=== PATIENT | female | born 1975 | race Caucasian/White ===

== ENCOUNTER 2022-09-03 15:49 | Emergency (ER) | payer BC, SELFPAY ==
--- NOTE | ~2022-09-03 | XR_ITS ---
EXAMINATION: XR chest 2V DATE: 09/03/2022 17:18 INDICATION: Edema of the legs TECHNIQUE: PA and lateral views of the chest are obtained. COMPARISON: None available FINDINGS: There is mild atelectasis of the lung bases. No pleural effusion or pneumothorax. The cardi omediastinal silhouette is normal. There are changes of posterior fusion in the thoracic spine. There is an old T8 compression fracture. Healed right-sided rib fractures are noted. IMPRESSION: 1. Mild atelectasis of the lung bases. Reviewed, dictated and finalized at location F.
[2022-09-03 15:57] VITALS: BP 108/72; PULSE 65; RESP 20; TEMP 36.6; O2SAT 100
--- NOTE | 2022-09-03 16:57 | ED.EXTPRO ---
HPI - Extremity Problem General Chief complaint: Extremity Problem,Nontraumatic Stated complaint: Swollen Legs/Feet Time Seen by Provider: 09/03/22 16:57 Source: patient, RN notes reviewed and old records reviewed Mode of arrival: ambulatory Limitations: no limitations History of Present Illness HPI Narrative: 46 year old female who presents to [facility] care with complaints of 3 day duration of bilateral swollen feet and lower leg edema.Patient reports that she has not had prior occurrence of this type of swelling, denies any injury to legs, no cough or any shortness of breath. 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 Patient has no redness or any open lesions to legs or feet pitting edema note to feet. MD Complaint: other (lower leg and foot edema bilateral) Onset (ago): day(s) (3) Related Data Home Medications Medication Instructions Recorded Confirmed No Home Medications 09/03/22 09/03/22 Allergies Allergy/AdvReac Type Severity Reaction Status Date / Time No Known Allergies Allergy Verified 09/03/22 16:38 Review of Systems Review of Systems: CONSTITUTIONAL: Denies fever, chills, or sweats. EYES: Denies visual changes, redness, or discharge. ENT: Denies rhinorrhea, congestion, sore throat, or otalgia. CARDIOVASCULAR: Denies chest pain, palpitations, bilateral lower extremity swelling and pedal edema RESPIRATORY: Denies cough or dyspnea. GASTROINTESTINAL: Denies abdominal pain, nausea, vomiting, or diarrhea. GENITOURINARY: Denies dysuria or hematuria. SKIN: Denies rash or itching. MUSCULOSKELETAL: Some chronic back pain, joint pain, or myalgia. NEUROLOGIC: Denies headache, numbness, or weakness. PSYCHIATRIC: Denies anxiety or depression. All systems reviewed & are unremarkable except as noted in HPI and below [facility] Surgical History Surgical History (Updated 09/03/22 @ 17:57 by Lily Elise NP) H/O Spinal surgery Social History Social History (Updated 09/07/22 @ 06:59 by Lily Elise NP) Smoking packs per day: 0.5 Smoking cigarettes per day: 10.0 Years smoked: 15 Smoking pack-years: 7.50 Smoking status: Current every day smoker Alcohol intake: unknown Substance use type: does not use Living arrangements: with family Gender identity (if verbalized by the patient): Female Comments At time of signature, agree with nursing past medical, surgical, social and family history. There is no relevant family history pertinent to the presenting complaint Exam Narrative: GENERAL: Well-appearing, well-nourished, and in no acute distress. HEAD: Normocephalic, atraumatic. EYES: PERRLA and EOMI. ENT: Nares clear, no rhinorrhea or epistaxis. Mucous membranes moist.TM's normal throat pink with no swelling NECK: Supple. no lymphadenopathy CHEST: Clear to auscultation. No respiratory distress. SAO2 100% on room air HEART: Regular rate and rhythm. No murmur heard. Normal peripheral pulses. ABDOMEN: Soft, nontender, nondistended, normal active bowel sounds. EXTREMITIES: Normal range of motion. pretibial edema to bilateral lower extremities,1+ pedal edema to feet.No calf tenderness SKIN: Warm, dry, no rash. NEURO: No focal deficits. Alert and oriented x3. Course Course Emergency Course: Patient is aware of diagnosis, understands and agrees to treatment plan.? Anticipatory guidance given.? Patient agrees to follow-up as directed and is aware of reasons to seek care at the emergency department. Portions of this record may have been created with voice recognition software Level of Care: Express Care Visit Vital Signs Vital signs: Vital Signs Temperature 36.6 C 09/03/22 15:57 Pulse Rate 65 09/03/22 15:57 Respiratory Rate 20 09/03/22 15:57 Blood Pressure 108/72 09/03/22 15:57 Pulse Oximetry 100 09/03/22 15:57 Oxygen Delivery Room Air 09/03/22 15:57 Temperature 36.6 C 09/03/22 15:57 Pulse Rate 65 09/03/22 15:57 Respiratory Rate
== END 2022-09-03 18:00 | disposition home or self-care (01) ==
PROVIDERS: Emergency Provider Registered Nurse; PCP Family Medicine
DX: R60.9 Edema, unspecified (principal); R60.0 Localized edema; F17.210 Nicotine dependence, cigarettes, uncomplicated
CPT/HCPCS: 71046; 99213; G0463

== ENCOUNTER 2024-03-11 18:15 | Emergency (ER) | payer SELFPAY ==
[2024-03-11 18:26] VITALS: BP 141/83; PULSE 95; RESP 16; TEMP 36.5; O2SAT 98
--- NOTE | 2024-03-11 18:56 | ED.GENADULT ---
HPI - General Adult General Chief complaint: Nausea/Vomiting/Diarrhea Stated complaint: Vomiting/Headache Source: patient Mode of arrival: ambulatory Limitations: no limitations History of Present Illness HPI narrative: 40-year-old female presented for complaint nausea, vomiting and diarrhea earlier in the week. She states she felt like she had the flu and missed work. 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 She states she feels much better, symptoms are resolved, and she has been able to tolerate p.o. Related Data Home Medications Medication Instructions Recorded Confirmed furosemide 20 mg tablet mg 03/11/24 Allergies Allergy/AdvReac Type Severity Reaction Status Date / Time ciprofloxacin Allergy Unknown Verified 03/11/24 18:51 Review of Systems Review of Systems: CONSTITUTIONAL: Denies body aches, fever, chills, or sweats. ENT: Denies rhinorrhea, congestion, sore throat, or otalgia. CARDIOVASCULAR: Denies chest pain, palpitations, or edema. RESPIRATORY: Denies cough or dyspnea. GASTROINTESTINAL: Denies abdominal pain, nausea, vomiting, or diarrhea. GENITOURINARY: Denies dysuria or hematuria. SKIN: Denies rash, itching, or wounds. MUSCULOSKELETAL: Denies back pain, joint pain, or myalgia. NEUROLOGIC: Denies headache, numbness, tingling, or weakness. All systems reviewed & are unremarkable except as noted in HPI and below [facility] Surgical History Surgical History H/O Spinal surgery Social History Social History Smoking packs per day: 0.5 Smoking cigarettes per day: 10.0 Years smoked: 15 Smoking pack-years: 7.50 Smoking status: Current every day smoker Alcohol intake: unknown Substance use type: does not use Living arrangements: with family Gender identity (if verbalized by the patient): Female Comments At time of signature, I have reviewed and agree with nursing past medical, surgical, social and family history unless otherwise noted. Please see nursing chart for further information. There is no relevant family history pertinent to the presenting complaint Exam Narrative: GENERAL: Well-appearing, well-nourished, and in no acute distress. EYES: EOMI. No redness or drainage. Conjunctivae normal. ENT: Mucous membranes pink and moist. NECK: Normal AROM. CHEST: No respiratory distress. Clear to auscultation. HEART: Regular rate and rhythm. No murmur appreciated. Normal peripheral pulses. ABDOMEN: Soft, nontender, nondistended, normal active bowel sounds. SKIN: Warm, dry, no rash. Capillary refill normal. Normal skin turgor. NEURO: No focal deficits. Alert and oriented x3. Gait steady. PSYCH: Normal affect. Course Course Emergency Course: Patient is aware of diagnosis, understands and agrees to treatment plan. Anticipatory guidance given. Patient agrees to follow-up as directed and is aware of reasons to seek care at the emergency department. Portions of this record may have been created with voice recognition software Level of Care: Express Care Visit Vital Signs Vital signs: Vital Signs Temperature 97.7 F 03/11/24 18:26 Pulse Rate 95 03/11/24 18:26 Respiratory Rate 16 03/11/24 18:26 Blood Pressure 141/83 H 03/11/24 18:26 Pulse Oximetry 98 03/11/24 18:26 Oxygen Delivery Room Air 03/11/24 18:26 Temperature 97.7 F 03/11/24 18:26 Pulse Rate 95 03/11/24 18:26 Respiratory Rate 16 03/11/24 18:26 Blood Pressure 141/83 H 03/11/24 18:26 Pulse Oximetry 98 03/11/24 18:26 Oxygen Delivery Room Air 03/11/24 18:26 Medical Decision Making MDM Narrative Medical decision making narrative: Advised supportive measures and signs/symptoms to go to the ER. Pt is appropriate for outpt treatment and f/u. Differential Diagnosis Differential Diagnosis: gastroenteritis, viral infection
== END 2024-03-11 19:01 | disposition home or self-care (01) ==
PROVIDERS: Emergency Provider Nurse Practitioner Family
DX: R11.10 Vomiting, unspecified (principal); F17.210 Nicotine dependence, cigarettes, uncomplicated
CPT/HCPCS: 99211; G0463

== ENCOUNTER 2024-05-16 17:09 | Emergency (ER) | payer SELFPAY ==
[2024-05-16 17:16] VITALS: BP 117/76; PULSE 97; RESP 16; TEMP 36.4; O2SAT 97
[2024-05-16 17:18] VITALS: BP 117/76; PULSE 97; RESP 16; TEMP 36.4; O2SAT 97
--- NOTE | 2024-05-16 17:48 | ED_ITS ---
HPI - Nausea/Vomiting/Diarrhea General Chief complaint: Nausea/Vomiting/Diarrhea Stated complaint: needs note for work Time Seen by Provider: 05/16/24 17:48 Source: patient Mode of arrival: ambulatory Limitations: no limitations History of Present Illness HPI Narrative: 48-year-old female presents with complaint nausea, vomiting, fatigue, headache this morning. Was unable to go to work due to symptoms. Last vomited around 9:00 a.m.. Since then has been able to eat chicken noodle soup and drink water. Is feeling much better. Needs note to return to work. All systems reviewed and negative except as noted above. Related Data Home Medications Medication Instructions Recorded Confirmed furosemide 20 mg tablet mg 03/11/24 fluoxetine 20 mg capsule 20 mg PO DAILY 05/16/24 05/16/24 potassium chloride 10 mEq 10 meq PO DAILY 05/16/24 05/16/24 tablet,extended release Allergies Allergy/AdvReac Type Severity Reaction Status Date / Time ciprofloxacin Allergy Unknown Verified 03/11/24 18:51 Review of Systems Review of Systems: CONSTITUTIONAL: Denies fever, chills, or sweats. EYES: Denies visual changes, redness, or discharge. ENT: Denies rhinorrhea, congestion, sore throat, or otalgia. CARDIOVASCULAR: Denies chest pain, palpitations, or edema. RESPIRATORY: Denies cough or dyspnea. GASTROINTESTINAL: Denies abdominal pain . Reports nausea, vomiting. Denies diarrhea. GENITOURINARY: Denies dysuria or hematuria. SKIN: Denies rash or itching. MUSCULOSKELETAL: Denies back pain, joint pain, or myalgia. NEUROLOGIC: Denies headache, numbness, or weakness. PSYCHIATRIC: Denies anxiety or depression. All other systems reviewed are negative, except as documented in HPI. [facility] Surgical History Surgical History H/O Spinal surgery Social History Social History Smoking packs per day: 0.5 Smoking cigarettes per day: 10.0 Years smoked: 15 Smoking pack-years: 7.50 Smoking status: Current every day smoker Alcohol intake: unknown Substance use type: does not use Living arrangements: with family Gender identity (if verbalized by the patient): Female Comments At time of signature, agree with nursing past medical, surgical, social and family history. There is no relevant family history pertinent to the presenting complaint. Exam Narrative: GENERAL: This is a well-nourished, well-developed patient, in no apparent distress. HEAD: normocephalic, atraumatic. EYES: PERRL. Sclera clear/white. Vision is grossly intact. EARS: External ears normal NOSE: External nose normal NECK: Neck supple, non-tender without lymphadenopathy, masses or thyromegaly. CARDIOVASCULAR: Regular rate and rhythm without murmurs, gallops, or rubs. RESPIRATORY: Clear to auscultation. Breath sounds equal bilaterally. No wheezes, rales, or rhonchi. GASTROINTESTINAL: Abdomen soft, non-tender, nondistended. Bowel sounds are active. No hepato-splenomegaly, or palpable masses. No guarding. SKIN: warm, Dry, intact with no suspicious lesions or rash, good texture and turgor. NEURO: awake, alert, and oriented to person, place and time. There were no obvious focal neurologic abnormalities. EXTREMITIES: No joint tenderness, effusion, or edema noted. Course Course Level of Care: Express Care Visit Vital Signs Vital signs: Vital Signs Temperature 36.4 C 05/16/24 17:16 Pulse Rate 97 05/16/24 17:16 Respiratory Rate 16 05/16/24 17:16 Blood Pressure 117/76 05/16/24 17:16 Pulse Oximetry 97 05/16/24 17:16 Oxygen Delivery Room Air 05/16/24 17:16 Temperature 36.4 C 05/16/24 17:18 Pulse Rate 97 05/16/24 17:18 Respiratory Rate 16 05/16/24 17:18 Blood Pressure 117/76 05/16/24 17:18 Pulse Oximetry 97 05/16/24 17:18 Oxygen Delivery Room Air 05/16/24 17:18 reviewed MDM - Nausea/Vomiting/Diarrhea MDM Narrative Medical decision making narrative: patient is well-appearing. Normal bowel sounds, no tenderness on exam. Able to keep down food and fluids. Patient is aware of diagnosis, understands and agrees to treatment plan. Anticipatory guidance given. Patient agrees to follow-up as directed and is aware of reasons to seek care at the emergency department. Portions of this record may have been created with voice recognition software Differential Diagnosis Differential diagnosis: Likely food poisoning and gastroenteritis Discharge Plan Discharge Clinical Impression: Nausea & vomiting Patient Disposition: Home, Self-Care Condition: Stable Instructions: Acute Nausea and Vomiting (ED) Additional Instructions: Take medication as prescribed to treat nausea and vomiting. This medication may cause abdominal bloating and constipation. Take ibuprofen or Tylenol every 6-8 hours as needed for pain and fever. Drink at least 64 oz of water a day. Follow-up with your primary care physician as needed. Prescriptions: New ondansetron 4 mg tablet,disintegrating 4 mg PO Q8H PRN (Reason: nausea and vomiting) Qty: 12 0RF No Action furosemide 20 mg tablet potassium chloride 10 mEq tablet extended release 10 meq PO DAILY fluoxetine 20 mg capsule 20 mg PO DAILY Follow-up/Referrals: Aparna Skinner RN [Primary Care Provider] - Stand Alone Forms: Work/School Release IP Time of Disposition: 17:54
== END 2024-05-16 17:57 | disposition home or self-care (01) ==
PROVIDERS: Emergency Provider Nurse Practitioner Family
DX: R11.2 Nausea with vomiting, unspecified (principal); F17.210 Nicotine dependence, cigarettes, uncomplicated
CPT/HCPCS: 99213; G0463

== ENCOUNTER 2025-02-12 17:35 | Emergency (ER) | payer MEDICAID, SELFPAY ==
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
--- OUTSIDE RECORDS SUMMARY | 2025-02-12 17:37 | XMS_ITS | Clinical Summary ---
Author Organization [facility] Address [address] [place] [address] Care Team Providers Care Steam Hoist Operator Name Role Phone Kaleigh Valentino APRN-AGRICULTURAL EDUCATION PROFESSOR Primary Care Provider + Source Comments [facility],non-owned Affiliates and Associated Physician Practices is amultiple site organization consisting of ambulatory clinics and hospital sitesin [place], [place], [place] and [place]. This disclosure is being madepursuant to the Care Everywhere program and may not contain all information available regarding this patient. Last updated 18.[facility] Allergies Active Allergy Reactions Criticality Noted Date Comments Ciprofloxacin Diarrhea,Nausea and/ or Vomiting 07/18/2015 Other reaction(s): Other (see Comments) Severe abdominal pain. Had to be hospitalized Medications * Be aware that medications may not be up to date on this document. Alwaysverify current medications with the patient. albuterol HFA (PROVENTIL;VENT BRITTA;PROAIR) 108 (90 BASE) MCG/ACT inhaler Acti ve gabapentin (NEURONTIN) 300 MG capsule TK 2 CS PO TID 2 8 Active hydroCHLOROthia zide (MICROZIDE) 12.5 MG capsule TK ONE C PO D 3 8 Active ibuprofen (MOTRIN) 200 MG tablet Take 400-600 mg by mouth every 6 hours as needed Active QUEtiapine (SEROQUEL) 50 MG tablet TK 1 T PO BID 2 8 Active beclomethasone HFA (QVAR REDIHALER) 80 MCG/ACT inhaler Inhale 2 puffs by mouth as needed 8 Active METHADONE HCL PO Take 80 mg by mouth Active HYDROcodone-scott taminophen (NORCO) 5-325 MG tabletIndicatio ns:Pain Take 1 tablet by mouth every 4 hours as needed for Pain Reasons: Pain 10 tablet 9 Active Additional Information Patient not taking.Reported on 06/24/2018 Active Problems Problem Noted Date Diagnosed Date Pre-op testing 06/15/2018 Chronic obstructive pulmonar y disease with acute exacerbation 11/09/2017 Resolved Problems Problem Noted Date Diagnosed Date Resolved Date Bacteremia due to Gram-negative bacteria 11/20/2017 05/06/2018 Overview (05/06/2018): Overview: Last Assessment & Plan: Secondary to pyelo. Continue Rocephin. Neuropathy 11/20/2017 05/06/2018 Overview (05/06/2018): Overview: Last Assessment & Plan: Continue home medications. Anxiety 11/09/2017 05/06/2018 Chronic back pain 11/09/2017 05/06/2018 Current smoker 04/06/2015 05/06/2018 Overview (05/06/2018): Overview: Overview: Current smoker Last Assessment & Plan: Patient refusing nicotine patch at this time. Patient advised ask for nicotine patch if she would like 1. Immunizations Immunization Administration Dates Next Due INFLUENZA VACCINE, QUADR. (F LUZONE; FLULAVAL; FLUARIX; AFLURIA QUADRIVALENT; 6MO+), 0.5 ML (IIV4) 04/06/2018 Social History Tobacco Use Types Packs/Day Years Used Date Smoking Tobacco: Heavy Smoker Cigarettes 1 15 Smokeless Tobacco: Never Tobacco Cessation:Ready to Q uit: No; Counseling Given: Yes Alcohol Use Standard Drinks/Week Comments Yes 0 (1 standard drink = 0.6 oz pure alcohol) drinks 1 time per week, half a pint, denies recent use Comments No Sex and Gender Information Value Date Recorded Sex Assigned at Not on file Legal Sex Female 5:44 PM ARTIFICIAL PEARL MAKER Gender Identity Not on file Sexual Orientation Not on file Last Filed Vital Signs Vital Sign Reading Time Taken Comments Blood Pressure 116/69 06/24/2018 10:02 AM ARTIFICIAL PEARL MAKER Pulse 72 06/24/2018 10:02 AM ARTIFICIAL PEARL MAKER Temperature 37.1 C (98.7 F) 06/24/2018 10:02 AM ARTIFICIAL PEARL MAKER Respiratory Rate 16 06/24/2018 10:02 AM ARTIFICIAL PEARL MAKER Oxygen Saturation 97% 06/15/2018 11:31 AM ARTIFICIAL PEARL MAKER Inhaled Oxygen Concentration - - Weight 60.3 kg (133 lb) 06/24/2018 10:02 AM ARTIFICIAL PEARL MAKER Height 157.5 cm (5' 2) 06/24/2018 10:02 AM ARTIFICIAL PEARL MAKER Body Mass Index 24.33 06/24/2018 10:02 AM ARTIFICIAL PEARL MAKER Plan of Treatment Health Maintenance Due Date Last Done Comments COLOGUARD (AGES 45-75) - COL ON CA SCREENING 1975 COLON MONITORING 1975 COLONOSCOPY - COLON CA SCREENING 1975 CT COLONOGRAPHY - COLON CA SCREENING 1975 Colorectal Cancer Screening 1975 FIT - COLON CA SCREENING 1975 FLEX SIG - COLON CA SCREENING 1975 LIPID TESTING 1975 MAMMOGRAM 1975 HIV SCREENING 10/29/1990 HEPATITIS C SCREENING 10/25/1993 DTAP/TDAP/TD VACCINES (1 - Tdap) 10/29/1994 HEPATITIS B VACCINE (1 of 3 - 19+ 3-dose series) 10/29/1994 PAP SMEAR 10/29/1996 DEPRESSION SCREENING 06/08/2024 COVID-19 VACCINE (1 - 2023-2 5 season) 2025 INFLUENZA VACCINE (#1) 2025 04/06/2018 ZOSTER VACCINE (1 of 2) 10/29/2025 HIB VACCINE Aged Out No longer eligi ble based on patient's age to complete this topic HPV VACCINE Aged Out No longer eligi ble based on patient's age to complete this topic MENINGOCOCCAL (Group B) VACC INE SHARED DECISION-MAKING Aged Out No longer eligibl e based on patient's age to complete this topic MENINGOCOCCAL GROUPS A/C/Y/W VACCINE Aged Out No longer eligible b ased on patient's age to complete this topic Insurance [facility] Care Teams Steam Hoist Operator Relationship Specialty Start Date End Date Kaleigh Valentino, MERYL-AGRICULTURAL EDUCATION PROFESSOR PCP - General 04/19/18
--- OUTSIDE RECORDS SUMMARY | 2025-02-12 17:37 | XMS_ITS | Encounter Summary ---
Author Organization [facility] Address [address] [place] [address] Phone Care Team Providers Care Materials Handler Name Role Phone Hunter Parra MD Unavailable [phone] Aparna Skinner PILLING MACHINE OPERATOR, OWNER PROFESSIONAL ENGINEER Primary Care Provider + Victorina Brenner PILLING MACHINE OPERATOR, OWNER PROFESSIONAL ENGINEER Unavailable [phone] Moe Lovelace MD Unavailable Reason for Visit * Reason Comments Medication Refill Encounter Details Date Type Department Care Team (Late st Contact Info) Description 10/01/2024 Refill [facility] - Family Medicine [facility] [address] [place] [phone] Aparna Skinner, PILLING MACHINE OPERATOR, OWNER PROFESSIONAL ENGINEER [address] [place] [address] Medication Refill Social History Tobacco Use Types Packs/Day Years Used Date Smoking Tobacco: Former Cigarettes 1 33 1 990 - 2022 Smokeless Tobacco: Never Alcohol Use Standard Drinks/Week Comments Not Currently 0 (1 standard drink = 0.6 oz pure alcohol) quit 2020, used to drink 30 pack a day [facility] Utilities Answer Date Recorded In the past 12 months has th [employer], gas, oil, or water company threatened to shut off services in your home? Patient declined 11/15/2023 Social Connection and Isolation Panel Answer Date Recorded In a typical week, how many times do you talk on the phone with family, friends, or neighbors? Patient declined 11/15/2023 How often do you get togethe r with friends or relatives? Patient declined 11/15/2023 How often do you attend sabianism or yazdanism serv ices? Patient declined 11/15/2023 Do you belong to any clubs o r organizations such as sabianism groups, unions, fraternal or athletic groups, or school groups? Patient declined 11/15/2023 How often do you attend meet ings of the clubs or organizations you belong to? Patient declined 11/15/2023 Are you , , di vorced, , never , or living with a partner? Patient declined 11/15/2023 AUDIT-C Answer Date Recorded Q1: How often do you have a drink containing alc ohol? Patient declined 11/15/2023 Q2: How many drinks containi ng alcohol do you have on a typical day when you are drinking? Patient declined 11/15/2023 Q3: How often do you have si x or more drinks on one occasion? Patient declined 11/15/2023 Overall Financial Resource Strain (CARDIA) Answe r Date Recorded How hard is it for you to pa y for the very basics like food, housing, medical care, and heating? Patient declined 11/15/2023 PHQ-2 Answer Date Recorded Total Score - Questions 1-9 11 07/2022 [facility] - Occupational Stress Questionnaire Answer Date Recorded Do you feel stress - tense, restless, nervous, or anxious, or unable to sleep at night because your mind is troubled all the time - these days? Patient declined 11/15/2023 Exercise Vital Sign Answer Date Recorde d On average, how many days pe r week do you engage in moderate to strenuous exercise (like a brisk walk)? Patient declined On average, how many minutes do you engage in exercise at this level? Patient declined 11/15/2023 Hunger Vital Sign Answer Date Recorded Within the past 12 months, y ou worried that your food would run out before you got the money to buy more. Patient declined Within the past 12 months, t he food you bought just didn't last and you didn't have money to get more. Patient declined 02/2024 PRAPARE - Transportation Answer Date Re corded In the past 12 months, has l ack of transportation kept you from medical appointments or from getting medications? Patient declined 11/15/2023 In the past 12 months, has l ack of transportation kept you from meetings, work, or from getting things needed for daily living? Patient declined 11/15/2023 Housing Stability Vital Sign Answer Minesh e Recorded In the last 12 months, was t here a time when you were not able to pay the mortgage or rent on time? Patient declined 11/13/19 In the last 12 months, how many places have you lived? 1 11/13/2023 In the last 12 months, was t here a time when you did not have a steady place to sleep or slept in a detention (including now)? Patient declined 11/13/2023 Housing Stability Vital Sign Answer Minesh e Recorded In the last 12 months, was t here a time when you were not able to pay the mortgage or rent on time? Patient declined 11/15/19 In the past 12 months, how m any times have you moved where you were living? 1 11/15/2023 At any time in the past 12 m ont, were you homeless or living in a detention (including now)? Patient declined 11/15/2023 Education Answer Date Recorded What is the highest level of school you have completed or the highest degree you have received? Some college, no degree 11/07/2022 Sexually Active Control Partners Comments Yes Male Comments No Sex and Gender Information Value Date Recorded Sex Assigned at Not on file Legal Sex Female 11:56 PM CDT Gender Identity Not on file Sexual Orientation Not on file documented as of this encounter Miscellaneous Notes * Telephone Encounter - Aziza Kumar RN - 10/03/2024 10:44 AM CDT 2 No Shows and 1 patient cancellation since last appt. documented in this encounter Plan of Treatment Not on file documented as of this encounter Visit Diagnoses Not on filedocumented in this encounter Additional Health Concerns Assessment Noted Time PHQ-9 Depression Total Score: 11 023 9:00 AM CDT documented as of this encounter Care Teams Materials Handler Relationship Specialty Start Date End Date Aparna Skinner, PILLING MACHINE OPERATOR, OWNER PROFESSIONAL ENGINEER [address] [place] [address] PCP - General Advanced Practice Nurse 11/07/22 Hunter Parra MD Consulting Physician Obstetrics & Gynecology 11/09/17 Victorina Brenner, PILLING MACHINE OPERATOR, OWNER PROFESSIONAL ENGINEER [address] [place] [address] Nurse Practitioner Cardiology 10/15/23 12/19/24 Moe Lovelace MD [address] [facility] [address] [place] [address] Consulting Physician Colon and Rectal Surgery 11/11/23 documented as of this encounter
--- OUTSIDE RECORDS SUMMARY | 2025-02-12 17:37 | XMS_ITS | Encounter Summary ---
Author Organization [facility] Address [address] [place] [address] Phone Care Team Providers Care Scalper Operator Name Role Phone Hunter Parra MD Unavailable [phone] Aparna Skinner BUSINESS INFORMATION MANAGER, LIFE INSURANCE SPECIALIST Primary Care Provider + Victorina Brenner BUSINESS INFORMATION MANAGER, LIFE INSURANCE SPECIALIST Unavailable [phone] Moe Lovelace MD Unavailable Reason for Visit * Reason Comments Medication Refill Encounter Details Date Type Department Care Team (Late st Contact Info) Description 11/06/2023 [facility]ill [facility] [address] [place] [phone] Aparna Skinner, BUSINESS INFORMATION MANAGER, LIFE INSURANCE SPECIALIST [address] [place] [address] Medication Refill Social History Tobacco Use Types Packs/Day Years Used Date Smoking Tobacco: Former Cigarettes 1 33 1 990 - 2022 Smokeless Tobacco: Never Alcohol Use Standard Drinks/Week Comments Yes 0 (1 standard drink = 0.6 oz pur e alcohol) occasionally [facility] Utilities Answer Date Recorded In the past 12 months has [employer], gas, oil, or water company threatened to shut off services in your home? No 09/29/2023 Social Connection and Isolation Panel Answer Date Recorded In a typical week, how many times do you talk on the phone with family, friends, or neighbors? More than three times a week 09/29/2023 How often do you get togethe r with friends or relatives? Never 09/29/2023 How often do you attend chur ch or orthodox services? Never 09/29/2023 Do you belong to any clubs o r organizations such as presybeterian groups, unions, fraternal or athletic groups, or school groups? No 09/29/2023 How often do you attend meet ings of the clubs or organizations you belong to? Never 09/29/2023 Are you , , di vorced, , never , or living with a partner? 09/29/2023 AUDIT-C Answer Date Recorded Q1: How often do you have a drink containing alcohol? Never 09/29/2023 Q2: How many drinks containi ng alcohol do you have on a typical day when you are drinking? Patient does not drink Q3: How often do you have si x or more drinks on one occasion? Never 09/29/2023 Overall Financial Resource Strain (CARDIA) Answe r Date Recorded How hard is it for you to pa y for the very basics like food, housing, medical care, and heating? Not very hard 09/29/2023 PHQ-2 Answer Date Recorded Total Score - Questions 1-9 11 06/0 07/2022 [facility] - Occupational Stress Questionnaire Answer Date Recorded Do you feel stress - tense, restless, nervous, or anxious, or unable to sleep at night because your mind is troubled all the time - these days? Very much 09/29/2023 Exercise Vital Sign Answer Date Recorde d On average, how many days pe r week do you engage in moderate to strenuous exercise (like a brisk walk)? 0 days 09/29/2023 On average, how many minutes do you engage in exercise at this level? 0 min 09/29/2023 Hunger Vital Sign Answer Date Recorded Within the past 12 months, y ou worried that your food would run out before you got the money to buy more. Sometimes true Within the past 12 months, t he food you bought just didn't last and you didn't have money to get more. Never true PRAPARE - Transportation Answer Date Re corded In the past 12 months, has l ack of transportation kept you from medical appointments or from getting medications? No 09/07 In the past 12 months, has l ack of transportation kept you from meetings, work, or from getting things needed for daily living? No 09/29/2023 Housing Stability Vital Sign Answer Minesh e Recorded In the last 12 months, was t here a time when you were not able to pay the mortgage or rent on time? No 09/29/2023 In the last 12 months, how many places have you lived? 1 09/29/2023 In the last 12 months, was t here a time when you did not have a steady place to sleep or slept in a [place] health care facility (including now)? No 09/29/2023 Education Answer Date Recorded What is the [...] encounter Miscellaneous Notes * Telephone Encounter - Kathrine Cardona RN - 11/06/2023 2:39 PM CDT Images from the original note were not included. Pantoprazole Sodium Dispensed Days Supply Quantity Provider Pharmacy PANTOPRAZOLE 20MG TABLETS 2023 15 30 Each Aparna Skinner APRN, LIFE INSURANCE SPECIALIST [facility] PANTOPRAZOLE 20MG TABLETS 10/02/2023 30 60 Each Aparna Skinner APRN, CNP [facility]... Medication(s) refilled and signed per [facility] Chronic Medication Refill Standing Order for Pediatricand Adult Patients. Requested Prescriptions Pending Prescriptions Disp Refills pantoprazole (PROTONIX) 20 MG Tablet Delayed Response [Pharmacy Med Name: PANTOPRAZOLE 20MG TABLETS] 90 Tablet 0 Sig: Take 2 Tablets by mouth daily. Proton Pump Inhibitors Protocol Passed - 11/06/2023 8:03 AM Passed - No positive test in the past 12 months or most recent test was negative Passed - Visit with relevant provider in past 12 months or upcoming 90 days Recent Visits Date Type Provider Dept 10/13/23 Office Visit Brent Baird MD [facility] It Technical Support Specialist [place] 09/30/23 Office Visit Aparna Skinner BUSINESS INFORMATION MANAGER, LIFE INSURANCE SPECIALIST [facility] 09/07/23 Office Visit Mau Ngo MD [facility] [place] 07/01/23 Office Visit Aparna Skinner, BUSINESS INFORMATION MANAGER, LIFE INSURANCE SPECIALIST [facility] [place] 05/27/23 Office Visit Aparna Skinner BUSINESS INFORMATION MANAGER, LIFE INSURANCE SPECIALIST [facility] [place] 11/21/22 Office Visit Aparna Skinner BUSINESS INFORMATION MANAGER, LIFE INSURANCE SPECIALIST [facility] Technical Support Specialist [place] 11/14/22 Office Visit Aparna Skinner BUSINESS INFORMATION MANAGER, LIFE INSURANCE SPECIALIST [facility] [place] 11/07/22 Office Visit Aparna Skinner APRN, LIFE INSURANCE SPECIALIST [facility] Showing recent visits within past 365 days and meeting all other requirements Future Appointments Date Type Provider Dept 11/13/23 Appointment Aparna Skinner APRN, LIFE INSURANCE SPECIALIST [facility] 02/01/24 Appointment Aparna Skinner APRN, LIFE INSURANCE SPECIALIST [facility] [place] Showing future appointments within next 90 days and meeting all other requirements Passed - No active on record documented in this encounter Plan of Treatment Not on file documented as of this encounter Visit Diagnoses Not on filedocumented in this encounter Additional Health Concerns Infection Onset Date Last Indicated Resolved Time COVID - 19 05/06/2024 05/06/2024 05/06/2024 11:1 8 AM VASCULAR TECHNICIAN Assessment Noted Time PHQ-9 Depression Total Score: 11 023 9:00 AM CDT documented as of this encounter Care Teams Scalper Operator Relationship Specialty Start Date End Date Aparna Skinner APRN, LIFE INSURANCE SPECIALIST [address] [place] [address] PCP - General Advanced Practice Nurse 11/07/22 Hunter Parra MD Consulting Physician Obstetrics & Gynecology 11/09/17 Victorina Brenner APRN, LIFE INSURANCE SPECIALIST [address] [facility] [place] [address] Nurse Practitioner Cardiology 10/15/23 12/19/24 Moe Lovelace MD [address] [facility] [address] [place] [address] Consulting Physician Colon and Rectal Surgery 11/11/23 documented as of this encounter
--- OUTSIDE RECORDS SUMMARY | 2025-02-12 17:37 | XMS_ITS | Encounter Summary ---
Author Organization [facility] Address [address] [place] [address] Phone Care Team Providers Care Loan Clerk Name Role Phone Hunter Parra MD Unavailable [phone] Aparna Skinner LICENSED OCCUPATIONAL THERAPIST, ELECTRONIC LAB TECHNICIAN Primary Care Provider + Victorina Brenner LICENSED OCCUPATIONAL THERAPIST, ELECTRONIC LAB TECHNICIAN Unavailable [phone] Moe Lovelace MD Unavailable Reason for Visit * Reason Comments Medication Refill Encounter Details Date Type Department Care Team (Late st Contact Info) Description 08/24/2023 Refill [facility] - Family Medicine [facility] [address] [place] [phone] Aparna Skinner, LICENSED OCCUPATIONAL THERAPIST, ELECTRONIC LAB TECHNICIAN [address] [place] [address] Medication Refill Social History Tobacco Use Types Packs/Day Years Used Date Smoking Tobacco: Former Cigarettes 1 33 1 990 - 2022 Smokeless Tobacco: Never Alcohol Use Standard Drinks/Week Comments Yes 0 (1 standard drink = 0.6 oz pur e alcohol) occasionally PHQ-2 Answer Date Recorded Total Score - Questions 1-9 11 /07/2022 Education Answer Date Recorded What is the [...] Telephone Encounter - Aziza Kumar RN - 08/24/2023 2:39 PM CDT Medication failed the protocol, provider to review and approve the medication order if appropriate. Requested Prescriptions Pending Prescriptions Disp Refills FLUoxetine (PROzac) 20 MG Capsule [Pharmacy Med Name: FLUOXETINE 20MG CAPSULES] 90 Capsule 1 Sig: TAKE 1 CAPSULE BY MOUTH DAILY SSRI (6 Month Refill Only) Protocol Failed - 08/24/2023 2:17 PM Failed - Patient has established therapy with SSRI for at least 6 months Passed - No test in the past 12 months or most recent test was negative Passed - No active on record Passed - Visit with relevant provider in past 6 months or upcoming 90 days Recent Visits Date Type Provider Dept 07/01/23 Office Visit Aparna Skinner APRN, ELECTRONIC LAB TECHNICIAN [facility] 05/27/23 Office Visit Aparna Skinner APRN, ELECTRONIC LAB TECHNICIAN [facility] Showing recent visits within past 182 days and meeting all other requirements Future Appointments Date Type Provider Dept 09/30/23 Appointment Aparna Skinner APRN, TERRANCE [facility] 11/13/23 Appointment Aparna Skinner APRN, ELECTRONIC LAB TECHNICIAN [facility] Showing future appointments within next 90 days and meeting all other requirements Passed - Has an encounter in the past 6 months with a depression, anxiety, adjustment disorder, OCD, or PTSD visit diagnosis documented in this encounter Plan of Treatment Not on file documented as of this encounter Visit Diagnoses Diagnosis Night sweats Generalized hyperhidrosis Anxiety Anxiety state, unspecified documented in this encounter Additional Health Concerns Infection Onset Date Last Indicated Resolved Time COVID - 19 05/06/2024 05/06/2024 05/06/2024 11:1 8 AM DETONATOR MAKER Assessment Noted Time PHQ-9 Depression Total Score: 11 023 9:00 AM CDT documented as of this encounter Care Teams Loan Clerk Relationship Specialty Start Date End Date Aparna Skinner APRN, ELECTRONIC LAB TECHNICIAN [address] [place] [address] PCP - General Advanced Practice Nurse 11/07/22 Hunter Parra MD Consulting Physician Obstetrics & Gynecology 11/09/17 Victorina Brenner APRN, ELECTRONIC LAB TECHNICIAN [address] [facility] [facility] [place] [address] Nurse Practitioner Cardiology 10/15/23 12/19/24 Moe Lovelace MD [address] [facility] [address] [place] [address] Consulting Physician Colon and Rectal Surgery 11/11/23 documented as of this encounter
--- OUTSIDE RECORDS SUMMARY | 2025-02-12 17:37 | XMS_ITS | Encounter Summary ---
Author Organization [facility] Address [address] [facility] [place] [address] Phone Care Team Providers Care Salesperson Furs Name Role Phone Hunter Parra MD Unavailable [phone] Aparna Skinner DOPER, CRYPTANALYST Primary Care Provider + Victorina Brenner DOPER, CRYPTANALYST Unavailable [phone] Moe Lovelace MD Unavailable Reason for Visit * Reason Comments Medication Refill Encounter Details Date Type Department Care Team (Late st Contact Info) Description 09/21/2023 [facility]ill [facility] - [facility] [address] [place] [id number] Aparna Skinner, DOPER, CRYPTANALYST [address] [place] [address] Medication Refill Social History Tobacco Use Types Packs/Day Years Used Date Smoking Tobacco: Former Cigarettes 1 33 1 990 - 2022 Smokeless Tobacco: Never Alcohol Use Standard Drinks/Week Comments Yes 0 (1 standard drink = 0.6 oz pur e alcohol) occasionally [facility] Utilities Answer Date Recorded In the past 12 months has [employer] electric, gas, oil, or water company threatened to shut off services in your home? No 09/07/2023 Social Connection and Isolation Panel Answer Date Recorded In a typical week, how many times do you talk on the phone with family, friends, or neighbors? Three times a week 09/07/19 How often do you get togethe r with friends or relatives? Never 09/07/2023 How often do you attend chur ch or synagogue services? 1 to 4 times per year 09/07/2023 Do you belong to any clubs o r organizations such as uatsdin groups, unions, fraternal or athletic groups, or school groups? Yes 09/07/2023 How often do you attend meet ings of the clubs or organizations you belong to? 1 to 4 times per year 09/07/2023 Are you , , di vorced, , never , or living with a partner? 09/07/2023 AUDIT-C Answer Date Recorded Q1: How often do you have a drink containing alcohol? Never 09/07/2023 Q2: How many drinks containi ng alcohol do you have on a typical day when you are drinking? Patient does not drink Q3: How often do you have si x or more drinks on one occasion? Never 09/07/2023 Overall Financial Resource Strain (CARDIA) Answe r Date Recorded How hard is it for you to pa y for the very basics like food, housing, medical care, and heating? Somewhat hard 09/07/2023 PHQ-2 Answer Date Recorded Total Score - Questions 1-9 11 06/07/2022 [facility] - Occupational Stress Questionnaire Answer Date Recorded Do you feel stress - tense, restless, nervous, or anxious, or unable to sleep at night because your mind is troubled all the time - these days? Very much 09/07/2023 Exercise Vital Sign Answer Date Recorde d On average, how many days pe r week do you engage in moderate to strenuous exercise (like a brisk walk)? 0 days 09/07/2023 On average, how many minutes do you engage in exercise at this level? 0 min 09/07/2023 Hunger Vital Sign Answer Date Recorded Within the past 12 months, y ou worried that your food would run out before you got the money to buy more. Sometimes true Within the past 12 months, t he food you bought just didn't last and you didn't have money to get more. Sometimes true 06/2023 PRAPARE - Transportation Answer Date Re corded In the past 12 months, has l ack of transportation kept you from medical appointments or from getting medications? Yes 06/2023 In the past 12 months, has l ack of transportation kept you from meetings, work, or from getting things needed for daily living? Yes 09/07/2023 Housing Stability Vital Sign Answer Minesh e Recorded In the last 12 months, was t here a time when you were not able to pay the mortgage or rent on time? Yes 09/07/2023 In the last 12 months, how many places have you lived? 1 09/07/2023 In the last 12 months, was t here a time when you did not have a steady place to sleep or slept in a usp (including now)? No 09/07/2023 Education Answer Date Recorded What is the [...] Telephone Encounter - Aziza Kumar RN - 09/21/2023 4:51 PM CDT PRN medication requires review from provider Per nursing clinical judgement, provider to review and approve the medication(s) order(s) if appropriate. Requested Prescriptions Pending Prescriptions Disp Refills albuterol 108 (90 Base) MCG/ACT Aerosol Solution [Pharmacy Med Name: ALBUTEROL HFA INH (200 PUFFS) 8.5GM] 8.5 g 1 Sig: INHALE 2 PUFFS BY MOUTH EVERY 4 HOURS NEEDED FOR WHEEZING Short Acting Inhaled Beta-Agonists Protocol Passed - 09/21/2023 2:19 PM Passed - Visit with relevant provider in past 12 months or upcoming 90 days Recent Visits Date Type Provider Dept 09/07/23 Office Visit Mau Ngo MD [facility] 07/01/23 Office Visit Aparna Skinner APRN, TERRANCE [facility] 05/27/23 Office Visit Aparna Skinner APRN, TERRANCE [facility] 11/21/22 Office Visit Aparna Skinner APRN, TERRANCE [facility] 11/14/22 Office Visit Aparna Skinner APRN, TERRANCE [facility] 11/07/22 Office Visit Aparna Skinnre APRN, CRYPTANALYST [facility] Showing recent visits within past 365 days and meeting all other requirements Future Appointments Date Type Provider Dept 09/30/23 Appointment Aparna Skinner APRN, TERRANCE [facility] 10/13/23 Appointment Brent Baird MD [facility] 11/13/23 Appointment Aparna Skinner APRN, CRYPTANALYST [facility] Showing future appointments within next 90 days and meeting all other requirements documented in this encounter Plan of Treatment Not on file documented as of this encounter Visit Diagnoses Diagnosis Dyspnea on exertion Other dyspnea and respiratory abnormality documented in this encounter Additional Health Concerns Infection Onset Date Last Indicated Resolved Time COVID - 19 05/06/2024 05/06/2024 05/06/2024 11:1 8 AM MANAGED CARE SPECIALIST Assessment Noted Time PHQ-9 Depression Total Score: 11 023 9:00 AM CDT documented as of this encounter Care Teams Salesperson Furs Relationship Specialty Start Date End Date Aparna Skinner APRN, CNP [address] [place] [address] PCP - General Advanced Practice Nurse 11/07/22 Hunter Parra MD Consulting Physician Obstetrics & Gynecology 11/09/17 Victorina Brenner APRN, TERRANCE [address] [facility] [address] [place] [address] Nurse Practitioner Cardiology 10/15/23 12/19/24 Moe Lovelace MD [address] [place] [address] Consulting Physician Colon and Rectal Surgery 11/11/23 documented as of this encounter
--- OUTSIDE RECORDS SUMMARY | 2025-02-12 17:37 | XMS_ITS | Encounter Summary ---
Author Organization [facility] Address [address] [facility] [place] [address] Phone Care Team Providers Care Card Setter Name Role Phone Hunter Parra MD Unavailable [phone] Aparna Skinner ACUPUNCTURE PHYSICIAN, SLIP PRESSER Primary Care Provider + Victorina Brenner ACUPUNCTURE PHYSICIAN, SLIP PRESSER Unavailable [phone] Moe Lovelace MD Unavailable Reason for Visit * Reason Comments Medication Refill Encounter Details Date Type Department Care Team (Late st Contact Info) Description 07/14/2023 Refill [facility] [address] [place] [phone] Aparna Skinner, ACUPUNCTURE PHYSICIAN, SLIP PRESSER [address] [place] [address] Medication Refill Social History Tobacco Use Types Packs/Day Years Used Date Smoking Tobacco: Former Cigarettes 1 33 1 990 - 2022 Smokeless Tobacco: Never Alcohol Use Standard Drinks/Week Comments Yes 0 (1 standard drink = 0.6 oz pur e alcohol) occasionally PHQ-2 Answer Date Recorded Total Score - Questions 1-9 11 07/2022 Education Answer Date Recorded What is the [...] Telephone Encounter - Aziza Kumar RN - 07/14/2023 4:48 PM CST PRN medication requires review from provider Per nursing clinical judgement, provider to review and approve the medication(s) order(s) if appropriate. Requested Prescriptions Pending Prescriptions Disp Refills albuterol 108 (90 Base) MCG/ACT Aerosol Solution [Pharmacy Med Name: ALBUTEROL HFA INH (200 PUFFS) 8.5GM] 18 g 1 Sig: INHALE 2 PUFFS BY MOUTH EVERY 4 HOURS NEEDED FOR WHEEZING Short Acting Inhaled Beta-Agonists Protocol Passed - 07/14/2023 12:21 PM Passed - Visit with relevant provider in past 12 months or upcoming 90 days Recent Visits Date Type Provider Dept 07/01/23 Office Visit Aparna Skinner APRN, CNP [facility] 05/27/23 Office Visit Aparna Skinner APRN, CNP [facility] 11/21/22 Office Visit Aparna Skinner APRN, CNP [facility] 11/14/22 Office Visit Aparna Skinner APRN, CNP [facility] 11/07/22 Office Visit Aparna Skinner APRN, SLIP PRESSER [facility] Showing recent visits within past 365 days and meeting all other requirements Future Appointments Date Type Provider Dept 09/30/23 Appointment Aparna Skinner APRN, SLIP PRESSER [facility] Showing future appointments within next 90 days and meeting all other requirements 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 MACHINE OPERATOR documented in this encounter Plan of Treatment Not on file documented as of this encounter Visit Diagnoses Diagnosis Dyspnea on exertion Other dyspnea and respiratory abnormality documented in this encounter Additional Health Concerns Infection Onset Date Last Indicated Resolved Time COVID - 19 05/06/2024 05/06/2024 05/06/2024 11:1 8 AM BAILING MACHINE OPERATOR Assessment Noted Time PHQ-9 Depression Total Score: 11 023 9:00 AM CDT documented as of this encounter Care Teams Card Setter Relationship Specialty Start Date End Date Aparna Skinner APRN, SLIP PRESSER [address] [place] [address] PCP - General Advanced Practice Nurse 11/07/22 Hunter Parra MD Consulting Physician Obstetrics & Gynecology 11/09/17 Victorina Brenner APRN, SLIP PRESSER [address] [facility], [address] [place] [address] Nurse Practitioner Cardiology 10/15/23 12/19/24 Moe Lovelace MD [address] [place] [facility] [address] [place] [address] Consulting Physician Colon and Rectal Surgery 11/11/23 documented as of this encounter
--- OUTSIDE RECORDS SUMMARY | 2025-02-12 17:37 | XMS_ITS | Encounter Summary ---
Author Organization [facility] Address [address] [facility] [place] [address] Phone Care Team Providers Care Steam Gigger Name Role Phone Hunter Parra MD Unavailable [phone] Aparna Skinner LOG SNAKER, FISHER TROT LINE Primary Care Provider + Victorina Brenner APRN, FISHER TROT LINE Unavailable [phone] Moe Lovelace MD Unavailable Reason for Visit * Reason Comments Medication Refill Encounter Details Date Type Department Care Team (Late st Contact Info) Description 2023 Refill [facility] - [facility] [address] [place] [phone] Mau Ngo MD [address] [address] Medication Refill Social History Tobacco Use Types Packs/Day Years Used Date Smoking Tobacco: Former Cigarettes 1 33 1 - 2022 Smokeless Tobacco: Never Alcohol Use Standard Drinks/Week Comments Yes 0 (1 standard drink = 0.6 oz pur e alcohol) occasionally [facility] Utilities Answer Date Recorded In the past 12 months has [employer], gas, oil, or water company threatened [...] often do you attend chur ch or jew services? Never 09/29/2023 Do you belong to any clubs o r organizations such as latter-day groups, unions, fraternal or athletic groups, or [...] Score - Questions 1-9 11 06/0 07/2022 [facility] - Occupational Stress Questionnaire Answer Date [...] place to sleep or slept in a residential (including now)? No 09/29/2023 Education Answer Date [...] Telephone Encounter - Kathrine Cardona RN - 11/01/2023 12:42 PM CDT Medication(s) refilled and signed per [facility] Chronic Medication Refill Standing Order for Pediatricand Adult Patients. Requested Prescriptions Pending Prescriptions Disp Refills potassium chloride CR (KLORCON) 10 MEQ Tablet Controlled Release [Pharmacy Med Name: POTASSIUM CL 10MEQ ER TABLETS] 30 Tablet 1 Sig: Take 1 Tablet by mouth daily. Potassium Supplement Protocol Passed - 2023 6:55 PM Passed - Normal serum potassium in past 12 months POTASSIUM Date Value Ref Range Status 07/01/2023 4.4 3.5 - 5.1 mmol/L Final Passed - Visit with relevant provider in past 12 months or upcoming 90 days Recent Visits Date Type Provider Dept 10/13/23 Office Visit Brent Baird MD [facility] Roll Press Operator [place] 09/30/23 Office Visit Aparna Skinner APRN, TERRANCE [facility] 09/07/23 Office Visit Mau Ngo MD [facility] 07/01/23 Office Visit Aparna Skinner APRN, TERRANCE [facility] 05/27/23 Office Visit Aparna Skinner APRN, TERRANCE [facility] 11/21/22 Office Visit Aparna Skinner APRN, TERRANCE [facility] 11/14/22 Office Visit Aparna Skinner APRN, TERRANCE [facility] 11/07/22 Office Visit Aparna Skinner APRN, TERRANCE [facility] Showing recent visits within past 365 days and meeting all other requirements Future Appointments Date Type Provider Dept 11/13/23 Appointment Aparna Skinner APRN, TERRANCE [facility] Showing future appointments within next 90 days and meeting all other requirements furosemide (LASIX) 20 MG Tablet [Pharmacy Med Name: FUROSEMIDE 20MG TABLETS] 30 Tablet 1 Sig: Take 1 Tablet by mouth daily. Diuretics Protocol Passed - 2023 6:55 PM Passed - Serum potassium on record in past 12 months POTASSIUM Date Value Ref Range Status 07/01/2023 4.4 3.5 - 5.1 mmol/L Final Passed - Serum sodium on record in past 12 months SODIUM Date Value Ref Range Status 07/01/2023 135 (L) 136 - 145 mmol/L Final Passed - Blood pressure on record in past 12 months Clinician-entered: BP Readings from Last 3 Encounters: 10/22/23 104/78 10/13/23 138/86 09/30/23 136/82 Patient-entered: No data recorded Passed - Visit with relevant provider in past 12 months or upcoming 90 days Recent Visits Date Type Provider Dept 10/13/23 Office Visit Brent Baird MD [facility] Roll Press Operator [place] 09/30/23 Office Visit Aparna Skinner APRN, TERRANCE [facility] [place] 09/07/23 Office Visit Mau Ngo MD [facility] 07/01/23 Office Visit Aparna Skinner APRN, TERRANCE [facility] 05/27/23 Office Visit Aparna Skinner APRN, CNP [facility] 11/21/22 Office Visit Aparna Skinner APRN, CNP [facility] [place] 11/14/22 Office Visit Aparna Skinner APRN, CNP [facility] 11/07/22 Office Visit Aparna Skinner APRN, CNP [facility] Showing recent visits within past 365 days and meeting all other requirements Future Appointments Date Type Provider Dept 11/13/23 Appointment Aparna Skinner APRN, CNP [facility] Showing future appointments within next 90 days and meeting all other requirements Passed - GFR on record in past 12 months GFR, EST. NONAFRICAN Date Value Ref Range Status 07/01/2023 >60 >=60 Final documented in this encounter Plan of Treatment Not on file documented as of this encounter Visit Diagnoses Not on filedocumented in this encounter Additional Health Concerns Infection Onset Date Last Indicated Resolved Time COVID - 19 05/06/2024 05/06/2024 05/06/2024 11:1 8 AM [facility]IEF CONTROLLER [facility] Assessment Noted Time PHQ-9 Depression Total Score: 11 023 9:00 AM CDT documented as of this encounter Care Teams Steam Gigger Relationship Specialty Start Date End Date Aparna Skinner APRN, CNP [address] [place] [address] PCP - General Advanced Practice Nurse 11/07/22 Hunter Parra MD Consulting Physician Obstetrics & Gynecology 11/09/17 Victorina Brenner APRN, TERRANCE [address] [facility], [address] [address] Nurse Practitioner Cardiology 10/15/23 12/19/24 Moe Lovelace MD [address] [address] Consulting Physician Colon and Rectal Surgery 11/11/23 documented as of this encounter
--- OUTSIDE RECORDS SUMMARY | 2025-02-12 17:37 | XMS_ITS | Clinical Summary ---
Author Organization [facility] Address [address] [place] [address] Phone Care Team Providers Care Card Table Attendant Name Role Phone Hunter Parra MD Unavailable [phone] Aparna Skinner MANAGER OF GLOBAL, AUDIT INTERN Primary Care Provider + Moe Lovelace MD Unavailable Allergies Active Allergy Reactions Criticality Noted Date Comments Ciprofloxacin Diarrhea,Nausea,Vomi ti ng,Other (see Comments) 07/18/2015 Severe abdominal pain. Had to be hospitalized Medications triamcinolone (KENALOG) 0.1 % CreamIndicatio ns:Rash/skin eruption Application Site: Apply to affected area twice daily 45 g 3 Active Additional Information Patient not taking.Reported on 10/22/2023 albuterol 108 (90 Base) MCG/ACT Aerosol SolutionIndica tions:Dyspnea on exertion INHALE 2 PUFFS BY MOUTH EVERY 4 HOURS NEEDED FOR WHEEZING 8.5 g 1 4 Active acetaminophen (TYLENOL) 325 MG Tablet Take 1 Tablet by mouth every 6 hours as needed for Fever (for temperature greater than 100.4 F.). Do not exceed 4000 mg of acetaminophen in 24 hour from all sources. 4 Active FLUoxetine (PROzac) 20 MG CapsuleIndicat ions:Night sweats,Anxiety Take 1 Capsule by mouth daily. 90 Capsule 1 4 Active furosemide (LASIX) 20 MG Tablet Take 1 Tablet by mouth daily. 30 Tablet 1 4 Active potassium chloride CR (KLORCON) 10 MEQ Tablet Controlled Release Take 1 Tablet by mouth daily. 30 Tablet 1 4 Active Active Problems Problem Noted Date Diagnosed Date Upper abdominal pain 11/13/2023 Intractable nausea and vomiting 11/13/2023 Dermoid 09/07/2023 Lesion of left ovary 09/07/2023 Calculus of gallbladder without cholecystitis Exposure to hepatitis C 09/07/2023 Chest pain 09/07/2023 Bilateral leg edema 09/07/2023 SOB (shortness of breath) 09/07/2023 HSV-2 (herpes simplex virus 2) infection 023 Family history of malignant neoplasm of breast 0 01/31/2019 Overview (09/20/2019): Note: MGM Methamphetamine abuse 11/22/2018 Bacteremia due to Gram-negative bacteria 018 Overview (02/04/2018): Last Assessment & Plan: Secondary to pyelo. Continue Rocephin. Neuropathy 11/20/2017 Overview (02/04/2018): Last Assessment & Plan: Continue home medications. Pyelonephritis 11/19/2017 Overview (11/09/2020): Last Assessment & Plan: Continue Rocephin. Urine cultures are positive for E coli. Awaiting sensitivities. P.r.n. Toradol for pain. Patient has been afebrile. Patient is hypotensive although she is asymptomatic. Patient is able to ambulate to the bathroom with no difficulties or lightheadedness or dizziness. Will continue with IV fluids and continue to monitor. Opioid abuse 11/17/2017 Other problems related to lifestyle 11/17/2017 Overview (09/20/2019): Note: Unchanged Hepatitis C virus infection 11/17/2017 Chronic obstructive pulmonar y disease with acute exacerbation 11/09/2017 Anxiety 11/09/2017 Chronic back pain 11/09/2017 Tobacco abuse 04/06/2015 Overview (02/04/2018): Overview: Current smoker Last Assessment & Plan: Patient refusing nicotine patch at this time. Patient advised ask for nicotine patch if she would like 1. Immunizations Immunization Administration Dates Next Due Covid-19, Mrna, Lnp-s, PF, 1 00 mcg/0.5 mL Dose (Moderna) 09/10/2020,08/13/2020 Influenza Vaccine, Quadrivalent, PF 04/06/2018 Family History Medical History Relation Name Comments Other-comment Brother gi issues, gb out Cancer Father pancreatic Colon Cancer Father Cancer Maternal Grandfather liver Cancer Maternal Grandmother breast Heart Attack Maternal Grandmother Hypertension Maternal Grandmother Osteoarthritis Maternal Grandmother Stroke Maternal Grandmother Cancer Mother Pancreatic Diabetes Mother Hypertension Mother Osteoarthritis Mother ADD / ADHD Son Anxiety disorder Son Relation Name Status Comments Brother Alive Father Maternal Grandfather Maternal Grandmother Mother Son Alive Social History Tobacco Use Types Packs/Day Years Used Date Smoking Tobacco: Former Cigarettes 1 33 1 990 - 2022 Smokeless Tobacco: Never Tobacco Cessation:Counseling Given: Not Answered Alcohol Use Standard Drinks/Week Comments Not Currently 0 (1 standard drink = 0.6 oz pure alcohol) quit 2020, used to drink 30 pack a day [employer] Answer Date Recorded In the past 12 months has Shop pirate, gas, oil, or water [employer] threatened to shut off services in your home? Patient declined 11/15/2023 Social Connection and Isolation Panel Answer Date Recorded In a typical week, how many times do you talk on the phone with family, friends, or neighbors? Patient declined 11/15/2023 How often do you get togethe r with friends or relatives? Patient declined 11/15/2023 How often do you attend yarsani or episcopal serv ices? Patient declined 11/15/2023 Do you belong to any clubs o r organizations such as yarsani groups, unions, fraternal or athletic groups, or [...] Total Score - Questions 1-9 11 07/2022 [facility] - Occupational Stress Questionnaire Answer Date Recorded [...] or rent on time? Patient declined 11/13/19 24 In the last 12 months, how many [...] or rent on time? Patient declined 11/15/19 24 In the past 12 months, how m any times have you moved where you were living? 1 11/15/2023 At [facility] time [facility] the [facility] were you homeless or living in a [...] Sign Reading Time Taken Comments Blood Pressure 119/93 05/06/2024 9:57 AM HOG CONFINEMENT SYSTEM MANAGER Pulse 79 05/06/2024 9:57 AM HOG CONFINEMENT SYSTEM MANAGER Temperature 37.3 C (99.2 F) 05/06/2024 9:57 AM HOG CONFINEMENT SYSTEM MANAGER Respiratory Rate 18 05/06/2024 9:57 AM HOG CONFINEMENT SYSTEM MANAGER Oxygen Saturation 97% 05/06/2024 9:57 AM HOG CONFINEMENT SYSTEM MANAGER Inhaled Oxygen Concentration - - Weight 79.4 kg (175 lb) 05/06/2024 9:57 AM HOG CONFINEMENT SYSTEM MANAGER Height 157.5 cm (5' 2) 05/06/2024 9:57 AM HOG CONFINEMENT SYSTEM MANAGER Body Mass Index 32.01 05/06/2024 9:57 AM HOG CONFINEMENT SYSTEM MANAGER Plan of Treatment Health Maintenance Due Date Last Done Comments TdaP Immunization 1975 Hepatitis B Immunization (1 of 3 - 19+ 3-dose series) 10/29/1994 Pneumococcal Immunization Combined (1 of 2 - PCV) 10/29/1994 Cologuard 10/29/2020 Colonoscopy 10/29/2020 Colorectal Cancer Screening 10/29/2020 Immunochemical Fecal Occult Blood 10/29/2020 Mammogram 01/24/2024 01/23/2023, 11/2018, 12/18/2018 Influenza Immunization (#1) 2025 04/06/2018 SARS-COV-2 Immunization ( season) 2025 09/10/2020, 08/13/2020 Pap Smear 11/26/2025 11/26/2022, 11/18/2018 Cervical Cancer Screening (CCS) 11/22/2027 HPV/Cotest 11/22/2027 11/21/2022 Respiratory Syncytial Virus (RSV) Immunization (Adult) (1 - 1-dose 75+ series) 10/29/2050 Discussion re Starting/Frequency of Mammograms Completed 11/05/2023, 01/23/2023, 01/11/2019, Additional history exists Human Papillomavirus (HPV) Immunization Aged Out No longer eligible based on patient's age to complete this topic Meningococcal Immunization (ACWY) Aged Out No longer eligible based on patient's age to complete this topic Rotavirus Immunization Aged Out No lo nger eligible based on patient's age to complete this topic Procedures Procedure Name Priority Date/Time Associated Diagnosis Comments SAVITA DIAG LEFT UNILATERAL DIGITAL W CAD W GERSON Routine 11/05/2023 1:57 PM CDT Abnormal mammogram SAVITA DIAG BILATERAL DIGITAL W CAD W GERSON Routine 01/23/2023 2:48 PM CDT Abnormal mammogram PATHOLOGY CYTOLOGY TELECOMMUNICATIONS SWITCH TECHNICIAN Routine 11/26/2022 7:29 AM CDT Screening for cervical cancer HUMAN PAPILLOMA VIRUS (HPV) Routine 11/21/2022 3:16 PM CDT Screening for cervical cancer from Last 3 Months or Most Recently Relevant to Health Maintenance Results * SAVITA DIAG LEFT UNILATERAL DIGITAL W CAD W GERSON (11/05/2023 1:57 PM CDT) Anatomical Region Laterality Modality breast Left Mammography 11/05/2023 1:10 PM CDT Addenda Addendum by Monse Kim MD on 11/13/2023 2:03 PM CDT THIS REPORT HAS BEEN AMENDED. AMENDMENT: 11/13/2023 Monse Kim M.D. A bilateral screening mammogram is recommended in January 2024. This is 1 year from the patient's most recent bilateral mammogram. Amended BI-RADS: 3 Probably benign letter sent: Birad 3 Followup - SAVITA DIAG LEFT UNILATERAL DIGITAL W CAD W GERSON UNILATERAL LEFT DIGITAL DIAGNOSTIC MAMMOGRAM 3D/2D WITH CAD WITH MEDIOLATERAL OBLIQUE CRANIOCAUDAL: 11/05/2023 The study was acquired using digital technology and interpreted from soft copy. Current study was also evaluated with ICAD version 7.2. 2D digital mammographic views, as well as 3D digital tomosynthesis were performed in the CC and MLO projections. CLINICAL: Diagnostic study. Patient returns for a follow-up left breast. No personal history of cancer. Maternal grandmother had breast cancer. COMPARISONS: Comparison is made to exams dated: 12/18/2018, 01/11/2019, 01/23/2023, and 09/27/2012 [facility]. BREAST TISSUE:The tissue of left breast is extremely dense, which lowers the sensitivity of mammography. FINDINGS: Previously seen asymmetry in the superior left breast is stable. Prominent lymph nodes previously seen in the left axilla are unchanged. No other significant masses, calcifications, or other findings are seen in the breast. IMPRESSION: BI-RAD 3 PROBABLY BENIGN Asymmetry in the superior left breast and prominent left axillary lymph nodes are stable. A follow-up bilateral diagnostic mammogram is recommended in January 2024. The results and recommendations were discussed with the patient. Electronically signed by: Monse Kim M.D. ll/:11/05/2023 13:57:49 Animal Feeder(s): RT Mojgan(R)(M), [facility] letter sent: Birad 3 Followup Reading location: [facility] BI-RADS: 3 Probably benign Narrative 11/06/2023 5:32 PM CDT - SAVITA DIAG LEFT UNILATERAL DIGITAL W CAD W GERSON UNILATERAL LEFT DIGITAL DIAGNOSTIC MAMMOGRAM 3D/2D WITH CAD WITH MEDIOLATERAL OBLIQUE CRANIOCAUDAL: 11/05/2023 The study was acquired using digital technology and interpreted from soft copy. Current study was also evaluated with ICAD version 7.2. 2D digital mammographic views, as well as 3D digital tomosynthesis were performed in the CC and MLO projections. CLINICAL: Diagnostic study. Patient returns for a follow-up left breast. No personal history of cancer. Maternal grandmother had breast cancer. COMPARISONS: Comparison is made to exams dated: 12/18/2018, 01/11/2019, 01/23/2023, and 09/27/2012 [facility]. BREAST TISSUE:The tissue of left breast is extremely dense, which lowers the sensitivity of mammography. FINDINGS: Previously seen asymmetry in the superior left breast is stable. Prominent lymph nodes previously seen in the left axilla are unchanged. No other significant masses, calcifications, or other findings are seen in the breast. IMPRESSION: BI-RAD 3 PROBABLY BENIGN Asymmetry in the superior left breast and prominent left axillary lymph nodes are stable. A follow-up bilateral diagnostic mammogram is recommended in January 2024. The results and recommendations were discussed with the patient. Electronically signed by: Monse Kim M.D. ll/:11/05/2023 13:57:49 Animal Feeder(s): RT Mojgan(R)(M), [facility] letter sent: Birad 3 Followup Reading location: [facility] BI-RADS: 3 Probably benign Procedure Note Monse Kim MD - 11/06/2023 - SAVITA DIAG LEFT UNILATERAL DIGITAL W CAD W GERSON UNILATERAL LEFT DIGITAL DIAGNOSTIC MAMMOGRAM 3D/2D WITH CAD WITH MEDIOLATERAL OBLIQUE CRANIOCAUDAL: 11/05/2023 The study was acquired using digital technology and interpreted from soft copy. Current study was also evaluated with ICAD version 7.2. 2D digital mammographic views, as well as 3D digital tomosynthesis were performed in the CC and MLO projections. CLINICAL: Diagnostic study. Patient returns for a follow-up left breast. No personal history of cancer. Maternal grandmother had breast cancer. COMPARISONS: Comparison is made to exams dated: 12/18/2018, 01/11/2019, 01/23/2023, and 09/27/2012 [facility]. BREAST TISSUE:The tissue of left breast is extremely dense, which lowers the sensitivity of mammography. FINDINGS: Previously seen asymmetry in the superior left breast is stable. Prominent lymph nodes previously seen in the left axilla are unchanged. No other significant masses, calcifications, or other findings are seen in the breast. IMPRESSION: BI-RAD 3 PROBABLY BENIGN Asymmetry in the superior left breast and prominent left axillary lymph nodes are stable. A follow-up bilateral diagnostic mammogram is recommended in January 2024. The results and recommendations were discussed with the patient. Electronically signed by: Monse Kim M.D. ll/:11/05/2023 13:57:49 Animal Feeder(s): Kristie Dallas, RT(R)(M), [facility] letter sent: Shashi 3 Followup Reading location: [facility] BI-RADS: 3 Probably benign us Aparna Skinner MANAGER OF GLOBAL, AUDIT INTERN IMG MAMMO ORDERABLES Contreras tariq Result - Final * SAVITA DIAG BILATERAL DIGITAL W CAD W GERSON (01/23/2023 2:48 PM CDT) Anatomical Region Laterality Modality breast Bilateral Mammography 01/23/2023 1:56 PM CDT Narrative 01/23/2023 4:14 PM CDT - SAVITA DIAG BILATERAL DIGITAL W CAD W GERSON - SAVITA US BREAST LIMITED LT BILATERAL DIGITAL DIAGNOSTIC MAMMOGRAM 3D/2D WITH CAD WITH MEDIOLATERAL OBLIQUE CRANIOCAUDAL AND TARGETED LEFT ULTRASOUND: 01/23/2023 The study was acquired using digital technology and interpreted from soft copy. Current study was also evaluated with ICAD version 7.2. 2D digital mammographic views, as well as 3D digital tomosynthesis were performed in the CC and MLO projections. CLINICAL: Patient returns for a delayed 6 month follow-up left breast that was due in July 2019. She has multiple bruises on the superior and medial half of both breasts that are marked with mole markers. She reports a weight increase of 50 pounds. No personal history of cancer. Maternal grandmother had breast cancer. COMPARISONS: Comparison is made to exams dated: 01/12/2019, 01/11/2019, 12/18/2018, and 09/27/2012 [facility]. BREAST TISSUE:The tissue of both breasts is extremely dense, which lowers the sensitivity of mammography. FINDINGS: BILATERAL DIAGNOSTIC MAMMOGRAM Prominent left axillary lymph node is noted. There are bilateral bruises noted on the breasts. Additionally, patient has a known viral infection. There is questionable prominence of the superior left breast tissue near the site of ecchymosis, noted on the MLO and nipple in profile MLO projections. No other significant masses or calcifications are seen in either breast on the mammogram. TARGETED LEFT BREAST ULTRASOUND Targeted left breast ultrasound was performed in the region of interest. The previously identified hypoechoic lesion at the 12 o'clock position 1 cm from the nipple is no longer visualized. Scanning in the region of the ecchymosis demonstrates no definite soft tissue hematoma. IMPRESSION: OVERALL STUDY BIRADS: 3 PROBABLY BENIGN Left breast asymmetry is probably benign. Prominent left axillary lymph nodes may relate to left breast ecchymosis and or known viral infection. A follow-up mammogram in 6 months is recommended to demonstrate stability. The results and recommendations were discussed with the patient. Electronically signed by: Liane Vasquez M.D. ab/:01/23/2023 15:39:01 Animal Feeder(s): RT Veronika(R)(M), [facility]; Marifer Ambrosio, [facility] letter sent: Birad 3 Followup Reading location: [facility] OVERALL STUDY BIRADS: 3 Probably benign Procedure Note Liane Vasquez MD - 01/23/2023 - SAVITA DIAG BILATERAL DIGITAL W CAD W GERSON - SAVITA US BREAST LIMITED LT BILATERAL DIGITAL DIAGNOSTIC MAMMOGRAM 3D/2D WITH CAD WITH MEDIOLATERAL OBLIQUE CRANIOCAUDAL AND TARGETED LEFT ULTRASOUND: 01/23/2023 The study was acquired using digital technology and interpreted from soft copy. Current study was also evaluated with ICAD version 7.2. 2D digital mammographic views, as well as 3D digital tomosynthesis were performed in the CC and MLO projections. CLINICAL: Patient returns for a delayed 6 month follow-up left breast that was due in July 2019. She has multiple bruises on the superior and medial half of both breasts that are marked with mole markers. She reports a weight increase of 50 pounds. No personal history of cancer. Maternal grandmother had breast cancer. COMPARISONS: Comparison is made to exams dated: 01/12/2019, 01/11/2019, 12/18/2018, and 09/27/2012 [facility]. BREAST TISSUE:The tissue of both breasts is extremely dense, which lowers the sensitivity of mammography. FINDINGS: BILATERAL DIAGNOSTIC MAMMOGRAM Prominent left axillary lymph node is noted. There are bilateral bruises noted on the breasts. Additionally, patient has a known viral infection. There is questionable prominence of the superior left breast tissue near the site of ecchymosis, noted on the MLO and nipple in profile MLO projections. No other significant masses or calcifications are seen in either breast on the mammogram. TARGETED LEFT BREAST ULTRASOUND Targeted left breast ultrasound was performed in the region of interest. The previously identified hypoechoic lesion at the 12 o'clock position 1 cm from the nipple is no longer visualized. Scanning in the region of the ecchymosis demonstrates no definite soft tissue hematoma. IMPRESSION: OVERALL STUDY BIRADS: 3 PROBABLY BENIGN Left breast asymmetry is probably benign. Prominent left axillary lymph nodes may relate to left breast ecchymosis and or known viral infection. A follow-up mammogram in 6 months is recommended to demonstrate stability. The results and recommendations were discussed with the patient. Electronically signed by: Liane Vasquez M.D. ab/:01/23/2023 15:39:01 Animal Feeder(s): Tanja Fox, (R)(M), [facility]; Marifer Ambrosio, [facility] letter sent: Shashi Macias Followup Reading location: [facility] OVERALL STUDY BIRADS: 3 Probably benign us Aparna Skinner MANAGER OF GLOBAL, AUDIT INTERN IMG MAMMO ORDERABLES Fin al Result * PATHOLOGY CYTOLOGY TELECOMMUNICATIONS SWITCH TECHNICIAN (11/26/2022 7:29 AM CDT) SPECIMEN ADEQUACY Satisfactory for evaluation. Endocervical/transf ormation zone component is absent. 11/28/2022 3:49 PM CDT [facility] DESCRIPTIVE DIAGNOSIS NEGATIVE FOR INTRAEPITHELIAL LESIONS OR MALIGNANCY. 11/28/2022 3:49 PM CDT [facility] at 1549 CDT OTHER FINDINGS Predominance of coccobacilli present consistent with shift in vaginal bola. 11/28/2022 3:49 PM CDT [facility] Automated Examination Analysis of this sample has been assisted by an automated imaging and review system ([employer] Imaging System, [employer], [place], [place]). This case is further evaluated and finalized by a technical illustrations map inker and/or pathologist. 11/28/2022 3:49 PM CDT [facility] Disclaimer The PAP smear is a screening test designed to detect cancerous or precancerous cells of the uterine cervix. It is one of the best means available for detection of cervical cancer but still carries an inherent false-negative rate. The consequences of a false-negative PAP result can be minimized by adhering to current screening guidelines. The following are general guidelines recommended by the ACS, ASCP, ASCCP, and ACOG: PAP testing is recommended every three years for women 21-29, Co-Testing, a PAP test in conjunction with an HPV (Human Papillomavirus) test for women ages 30-65, and no PAP or HPV testing for women under the age of 21 or older than 65 unless clinically indicated. 11/28/2022 3:49 PM CDT [facility] Other CERVIX UTERI STRUCTURE / Unknown 11/26/2022 7:29 AM CDT 11/26/2022 9:29 AM CDT us Aparna Skinner APRN, CNP PATHOLOGY/CYTOLOGY ORDER ALAYNA Final Result [facility] [address] [facility] [address] [facility] [address], * HUMAN PAPILLOMA VIRUS (HPV) (11/21/2022 3:16 PM CDT) HPV OTHER HIGH RISK TYPES, PCR NEGATIVE NEGATIVE 11/25/2022 3:47 PM CDT [facility] Comment: The following Other High Risk types were not detected: 31, 33, 35, 39, 45, 51, 52, 56, 58, 59, 66, and 68. A negative high-risk HPV result does not exclude the possibility of future cytologic HSIL or underlying CIN2-3 or cancer. The presence of PCR inhibitors may cause false negative or invalid results. If concentrations of whole blood in the sample exceed 1.5% (dark red or brown coloration) in PreservCyt solution, there is a likelihood of obtaining a false-negative result. HPV TYPE 16 NEGATIVE NEGATIVE 11/25/2022 3:47 PM CDT [facility] Comment: A negative high-risk HPV result does not exclude the possibility of future cytologic HSIL or underlying CIN2-3 or cancer. The presence of PCR inhibitors may cause false negative or invalid results. If concentrations of whole blood in the sample exceed 1.5% (dark red or brown coloration) in PreservCyt solution, there is a likelihood of obtaining a false-negative result. HPV TYPE 18 NEGATIVE NEGATIVE 11/25/2022 3:47 PM CDT [facility] Comment: A negative high-risk HPV result does not exclude the possibility of future cytologic HSIL or underlying CIN2-3 or cancer. The presence of PCR inhibitors may cause false negative or invalid results. If concentrations of whole blood in the sample exceed 1.5% (dark red or brown coloration) in PreservCyt solution, there is a likelihood of obtaining a false-negative result. HPV ORDER BE USED FOR SCREENING OR DIAGNOSTIC SCREENING 11/25/2022 3:47 PM CDT [facility] Other Non-Phlebotomy Collection / Unknown 11/21/2022 3:16 PM CDT 11/21/2022 3:16 PM CDT Narrative [facility] - 11/25/2022 3:47 PM CDT Performed by Real-Time Polymerase Chain Reaction (PCR) on the Azael Marshall 4800. This assay has been validated for use with post-aliquot samples from the [employer] T5000 processor. Aparna Skinner APRN, AUDIT INTERN LAB SEND OUTS Final Re sult [facility] [address] [place] [address], [facility] [address] [place] [address] from Last 3 Months or Most Recently Relevant to Health Maintenance Insurance MEDICAID [place] Advance Directives * Full Code (Latest Code Status on File) Date Activated Date Inactivated Comments 11/13/2023 9:26 PM 11/15/2023 7:04 PM CPR-Full Treat ment: FULL ARREST: Attempt Resuscitation/CPR wit intubation and mechanical ventilation. PRE-ARREST: Use entire range of life support measures to stabilize the patient. Care Teams Card Table Attendant Relationship Specialty Start Date End Date Aparna Skinner, MANAGER OF GLOBAL, AUDIT INTERN [address] [place] [address] PCP - General Advanced Practice Nurse 11/07/22 Hunter Parra MD Consulting Physician Obstetrics & Gynecology 11/09/17 Moe Lovelace MD [address] [address] Consulting Physician Colon and Rectal Surgery 11/11/23
--- OUTSIDE RECORDS SUMMARY | 2025-02-12 17:38 | XMS_ITS | Patient Health Record ---
[facility] Organization [facility] Address [address] [place] [address] Care Team Providers Care Contact Lens Technician Name Role Phone Mark Nieves Primary Care Provider Allergies Allergen (clinical drug ingredient) Drug/Non Drug Allergy documented on EMR Reaction Allergy Type Onset Date Status ciprofloxacin cipro (uncoded) Unknown Allergy Active Reason For Referral No Information Medications Medication SIG (Take, Route, Fr equency, Duration) Notes Start Date End Date Status Narcan 4 MG/0.1ML as directed Nasally Active Social History Tobacco Use: Social History Observation Description Date Details (start date - stop date) Current Smoker NA - NA Dont use, Tobacco Use/Smoking Question Answer Notes Are you a current every day smoker Problems Problem Type SNOMED Code ICD Code Onset Dates Problem Status W/U Status Risk Notes Problem Tobacco dependence (09708754) Tobacco dependence (F17.200) Active confirmed Problem Opioid use disorder (1624041090) Opioid use disorder (F11.99) Active confirmed Plan Of Treatment No Information Insurance Providers Payer Name Payer Address Payer Phone Subscriber Number Group Number Insured Name Patient Relationship to Insured Coverage Start Date Coverage End Date [facility] [address] [place] [address] [phone] [id number] Amena Caro Self - patient is the insured 1 [employer] [facility] [address] [place] [address] [id number] Amena Caro Self - patient is the insured 8 1 Medical (General) History Surgical History Surgery Date(Month/Year) Back Hospitalization History Reason Date(Month/Year) childbirth
[2025-02-12 17:39] VITALS: BP 98/72; PULSE 84; RESP 20; TEMP 36.9; O2SAT 100
--- NOTE | 2025-02-12 19:37 | ED_ITS ---
HPI - Eye Problem General Chief complaint: Eye Problems Stated complaint: says her vision is off Time Seen by Provider: 02/12/25 17:40 Source: patient and RN notes reviewed Mode of arrival: ambulatory Limitations: no limitations History of Present Illness HPI Narrative: 49-year-old female presents Express Care complaining of double vision, vision changes, headaches, dizziness since yesterday. Patient said symptoms started around 8:00 a.m. yesterday morning. Patient says she was driving when she noticed that she was seeing double of everything on the road. Patient went home after that said she developed headache and was feeling dizzy. Patient says the headache waxes and wanes however she still continues to have double vision. Patient denies any nausea, vomiting, chest pain, shortness of breath, slurred speech, confusion, one-sided weakness, falls, loss of consciousness, or any other symptoms. Patient denies any significant past medical history. Related Data Home Medications ?Medication ?Instructions ?Recorded ?Confirmed ?Last Taken ?Type furosemide 20 mg tablet mg 03/11/24 Unknown History fluoxetine 20 mg capsule 20 mg PO DAILY 05/16/2403/01 Unknown History potassium chloride 10 mEq 10 meq PO DAILY 05/16/2403/01 Unknown History tablet,extended release Allergies Allergy/AdvReac Type Severity Reaction Status Date / Time ciprofloxacin Allergy Unknown Verified 08/23/24 15:46 Review of Systems Review of Systems: CONSTITUTIONAL: Denies fever, chills, or sweats. EYES: Denies visual changes, redness, or discharge. Positive for diplopia. ENT: Denies rhinorrhea, congestion, sore throat, or otalgia. CARDIOVASCULAR: Denies chest pain, palpitations, lightheadedness, or edema. Positive for dizziness. RESPIRATORY: Denies cough or dyspnea. GASTROINTESTINAL: Denies abdominal pain, nausea, vomiting, or diarrhea. GENITOURINARY: Denies dysuria or hematuria. SKIN: Denies rash or itching. MUSCULOSKELETAL: Denies back pain, joint pain, or myalgia. NEUROLOGIC: Denies loss of consciousness, seizures, focal weakness, slurred speech, facial droop,, numbness, or weakness. Positive for headaches. PSYCHIATRIC: Denies anxiety or depression. All other systems reviewed are negative, except as documented in HPI. [facility] Surgical History Surgical History H/O Spinal surgery Social History Social History Smoking packs per day: 0.5 Smoking cigarettes per day: 10.0 Years smoked: 15 Smoking pack-years: 7.50 Smoking status: Current every day smoker Alcohol intake: unknown Substance use type: does not use Living arrangements: with family Gender identity (if verbalized by the patient): Female Comments At the time of my signature, I reviewed and agree with the nursing past medical, surgical, social, and family history. There is no relevant family history pertinent to the patient complaint. Exam Narrative: GENERAL: This is a well-nourished, well-developed adult, in no apparent distress. They are non ill-appearing, nontoxic appearing. HEAD: normocephalic, atraumatic. EYES: Sclera clear/white. Conjunctiva normal. Vision is grossly intact. Extraocular movements intact. Pupils PERRLA EARS: External ears normal, Hearing grossly intact. NOSE: External nose normal THROAT: Mucous membranes moist, NECK: Neck supple, non-tender without lymphadenopathy, masses or thyromegaly. CARDIOVASCULAR: Regular rate and rhythm without murmurs, gallops, or rubs. RESPIRATORY: Clear to auscultation. Breath sounds equal bilaterally. No wheezes, rales, or rhonchi. SKIN: warm, Dry, intact with no suspicious lesions or rash, good texture and turgor. NEURO: awake, alert, and oriented to person, place and time. There were no obvious focal neurologic abnormalities. Cranial nerve 2-12 grossly intact. No pronator drift. Strength 5/5 equal bilaterally. Leg strength 5/5 equal bilaterally. Normal dorsiflexion plantar flexion. Speech is clear, no slurred speech. No facial droop. Tongue is midline. No limb ataxia. EXTREMITIES: No joint tenderness, effusion, or edema noted. Course Course Emergency Course: Portions of this record may have been created with voice recognition software Level of Care: Express Care Visit Vital Signs Vital signs: Vital Signs Temperature 98.4 F 02/12/25 17:39 Pulse Rate 84 02/12/25 17:39 Respiratory Rate 20 02/12/25 17:39 Blood Pressure 98/72 L 02/12/25 17:39 Pulse Oximetry 100 02/12/25 17:39 Oxygen Delivery Room Air 02/12/25 17:39 Temperature 98.4 F 02/12/25 17:39 Pulse Rate 84 02/12/25 17:39 Respiratory Rate 20 02/12/25 17:39 Blood Pressure 98/72 L 02/12/25 17:39 Pulse Oximetry 100 02/12/25 17:39 Oxygen Delivery Room Air 02/12/25 17:39 Reviewed Transfer Transfered to: [facility] Transportation: Other (Private vehicle) Transfer rationale: Patient requires higher level care, double vision, headaches, rule out CVA Accepting physician: Dr. Avila. MDM - Eye Problem MDM Narrative Medical decision making narrative: NIH score 0. Last known normal was 8:00 a.m. yesterday. Symptoms have been occurring for longer than 24 hours. Visual acuity grossly intact. However double vision is concerning cannot exclude neurological causes or stroke. Given patient's symptoms, it is recommend the patient seek a higher level care and proceed immediately to the emergency department. Patient is agreeable to go to [facility] ER. Called over to [facility] ER and spoke to Vel Delacruz who is aware this patient. Dr. Avila accepted the patient for transfer. Patient did not drive herself here in says her son brought her. Offered patient EMS and she declined stating her son will take her to the hospital. Patient is ambulatory with a steady gait unstable for transfer via private vehicle. Patient advised to remain NPO proceed immediately to the ER. Differential Diagnosis Differential diagnosis: Likely corneal abrasion and other (Diplopia, CVA, migraine, retinal detachment) Critical Care Time Critical Care Time Critical Care Time: No Discharge Plan Discharge Clinical Impression: Double vision Headache Qualifiers: Headache type: unspecified Headache chronicity pattern: acute headache Intractability: not intractable Qualified Code(s): R51.9 - Headache, unspecified Patient Disposition: Acute Care Hospital Condition: Stable Patient Language: Bur[place]ian Prescriptions: No Action furosemide 20 mg tablet potassium chloride 10 mEq tablet extended release 10 meq PO DAILY fluoxetine 20 mg capsule 20 mg PO DAILY ondansetron 4 mg tablet,disintegrating 4 mg PO Q8H PRN (Reason: nausea and vomiting) Qty: 12 0RF Follow-up/Referrals: PHYSICIAN,REGISTERED CLINICAL DIETITIAN [Primary Care Provider, Internal Medicine] Time of Disposition: 17:58
== END 2025-02-12 17:59 | disposition short-term general hospital (02) ==
DX: H53.2 Diplopia (principal); R51.9 Headache, unspecified; F17.210 Nicotine dependence, cigarettes, uncomplicated
CPT/HCPCS: 99212; G0463